=== PATIENT | female | born 1960 | race Two or more races ===

== ENCOUNTER 2021-12-06 01:50 | Emergency (ER) | payer MEDICAID ==
[2021-12-06] MEDS ORDERED: NAPR-1192 PO (10:34)
== END 2021-12-06 04:20 | disposition left against medical advice (07) ==
LOC: ER 02:05
DX: Z53.21 Procedure and treatment not carried out due to patient leaving prior to being seen by health care provider (principal)

== ENCOUNTER 2021-12-06 07:08 | Emergency (ER) | payer MEDICAID ==
[~2021-12-06] VITALS: Ht 172.7 cm; Wt 79.4 kg
--- NOTE | 2021-12-06 07:42 | NUR ---
TO ER BED6. GENERALIZED BODY PAIN X 1YEAR. ATTACHED TO MONITOR, NO RESP DISTRESS NOTED. AWAITING MD MORALES.
--- NOTE | 2021-12-06 08:14 | NUR ---
DR TRAN AT BEDSIDE
[2021-12-06] MEDS ORDERED: NAPR-1192 PO (10:34)
--- NOTE | 2021-12-06 10:59 | NUR ---
NAPROXEN 500 [address] PO ON[address] TRAN. THE ORDER IS READ BACK, VERIFIED. NOTED AND CARRIED OUT.
[2021-12-06] MEDS ORDERED: NAPROXEN 250 MG TABLET PO ONE (11:00)
[2021-12-06] MEDS ORDERED: NAPROXEN 250 MG TABLET ONE (11:05)
--- NOTE | 2021-12-06 11:20 | NUR ---
REFUSED TO SIGN HOMELESS WAIVER
--- NOTE | 2021-12-06 11:20 | NUR ---
Patient given written and verbal discharge instructions. Patient verbalizes understanding of instructions. Patient is ambulatory with steady gait. Refuses offer of [facility] placement. Patient given list of available shelters in surrounding area.
[2021-12-06 11:21] VITALS: BP 145/99
== END 2021-12-06 11:21 | disposition home or self-care (01) ==
LOC: EDUNIT# 07:08 → ER 07:14
DX: M19.042 Primary osteoarthritis, left hand (principal); M19.041 Primary osteoarthritis, right hand; M25.562 Pain in left knee; I10 Essential (primary) hypertension; Z98.890 Other specified postprocedural states; Z60.2 Problems related to living alone
CPT/HCPCS: 73564-TC